=== PATIENT | male | born 1955 | race Caucasian/White ===

== ENCOUNTER 2018-05-02 10:29 | Inpatient (IN) ==
[2018-05-04 12:59] VITALS: BP 173/90
== END 2018-05-04 13:07 | disposition home or self-care (01) | DRG 309 ==
LOC: N.ED 10:29 → N.EDINP 14:49 → N.TELEN 17:02
PROVIDERS: ADMIT Emergency Medicine; ATTEND Emergency Medicine

== ENCOUNTER 2020-05-10 12:18 | Inpatient (IN) ==
[2020-05-10 12:53] LABS: Basophils % 0.6 % (0.0-0.8); Eosinophils # 0.1 10*3/uL (0.0-0.87); Immature Granulocytes % 0.4 %; Immature Granulocytes Absolute 0.03 #; Lymphocytes # 0.9 10*3/uL (1.4-4.0); Lymphocytes % 12.7 % (21.2-54.2); Mean Corpuscular HGB Conc 31.4 GM/DL (32-36); Mean Platelet Volume 10.8 FL (9.6-12.0); Monocytes % 9.6 % (1.7-12.7); NRBC # 0.02 10*3/uL; Neutrophils % 75.7 % (38.7-73.9); Platelet Count 177 T/CUMM (130-400); Red Blood Count 1.58 MC/CUMM (3.8-5.5); Red Cell Distribution Width 15.2 % (9.3-17.3); White Blood Count 7.2 T/CUMM (4-12)
[2020-05-10 12:58] LABS: Hemoglobin 5.3 GM/DL (14.0-18.0)
[2020-05-10 12:59] LABS: Hematocrit 16.9 VOL% (42.0-52.0)
[2020-05-10 13:08] LABS: Albumin 2.1 G/DL (3.4-5.0); Bilirubin,Total 1.1 MG/DL (0.2-1.0); Calcium 7.5 MG/DL (8.5-10.1); Osmolality,Calculated 257.8 MOS/KG (273-304); Total Protein 4.8 G/DL (6.4-8.3)
[2020-05-10 13:11] LABS: INR 1.5; PT Patient Result 15.8 SECS (9.8-11.9)
[2020-05-10] MEDS ORDERED: GLUCAGON 1 MG VIAL IM PRN (13:32)
[2020-05-10] MEDS ORDERED: DEXTROSE 50% 25 GM/50 ML VIAL IV PRN (13:32)
[2020-05-10] MEDS ORDERED: SODIUM CHLORIDE 0.9% 1,000 ML IV PRN (13:35)
[2020-05-10 14:00] LABS: Thyroid Stimulating Hormone 17.6 uIU/ml (0.358-3.74); VLDL CHOLESTEROL 23.2 MG/DL
[2020-05-10] MEDS ORDERED: MORPHINE 4 MG/1 ML VIAL IV PRN (14:40)
[2020-05-10] MEDS: PANTOPRAZOLE 40 MG VIAL IV SCH ×2 (16:17→21:45)
[2020-05-10 17:02] LABS: Hematocrit 18.3 VOL% (42.0-52.0)
[2020-05-10 17:08] LABS: Hemoglobin 5.6 GM/DL (14.0-18.0)
[2020-05-10] MEDS: SODIUM CHLORIDE 0.9% 1,000 ML IV SCH (18:53)
[2020-05-11] MEDS: SODIUM CHLORIDE 0.9% 1,000 ML IV SCH ×2 (01:17→09:38)
[2020-05-11] MEDS: PANTOPRAZOLE 40 MG VIAL IV SCH ×2 (08:30→21:33)
[2020-05-11 08:46] LABS: Basophils # 0.1 10*3/uL (0.0-0.2); Basophils % 0.8 % (0.0-0.8); Eosinophils % 0.7 % (0.00-10.9); Hematocrit 26.3 VOL% (42.0-52.0); Hemoglobin 8.6 GM/DL (14.0-18.0); Immature Granulocytes % 0.3 %; Immature Granulocytes Absolute 0.02 #; Lymphocytes # 0.8 10*3/uL (1.4-4.0); Lymphocytes % 13.1 % (21.2-54.2); Mean Corpuscular HGB Conc 32.7 GM/DL (32-36); Mean Platelet Volume 10.7 FL (9.6-12.0); Monocytes % 9.5 % (1.7-12.7); Neutrophils % 75.6 % (38.7-73.9); Platelet Count 160 T/CUMM (130-400); Red Blood Count 2.71 MC/CUMM (3.8-5.5); Red Cell Distribution Width 18.8 % (9.3-17.3)
[2020-05-11 09:16] LABS: Calcium 7.8 MG/DL (8.5-10.1); Osmolality,Calculated 262.4 MOS/KG (273-304)
[2020-05-11 10:00] LABS: Free T4 (Free Thyroxine) 1.2 NG/DL (0.76-1.46)
[2020-05-11] MEDS ORDERED: MAGNESIUM SULF RIDER 2 GM in PREMIX 1 EACH IV ONE (10:55)
[2020-05-11] MEDS ORDERED: LORazepam 2 MG/1 ML VIAL IV PRN (10:59)
[2020-05-11] MEDS: MULTIVITAMIN (CENTRUM) TABLET PO SCH (11:35)
[2020-05-11] MEDS: FOLIC ACID 1 MG TABLET PO SCH (11:35)
[2020-05-11] MEDS: THIAMINE 100 MG TABLET PO SCH (11:35)
[2020-05-11 13:39] LABS: Hematocrit 30.5 VOL% (42.0-52.0); Hemoglobin 10.1 GM/DL (14.0-18.0)
[2020-05-12 05:58] LABS: Basophils # 0.1 10*3/uL (0.0-0.2); Basophils % 0.9 % (0.0-0.8); Eosinophils # 0.1 10*3/uL (0.0-0.87); Eosinophils % 1.6 % (0.00-10.9); Hematocrit 30.1 VOL% (42.0-52.0); Hemoglobin 10.3 GM/DL (14.0-18.0); Immature Granulocytes % 0.4 %; Immature Granulocytes Absolute 0.03 #; Lymphocytes # 1.3 10*3/uL (1.4-4.0); Lymphocytes % 15.6 % (21.2-54.2); Mean Corpuscular HGB Conc 34.2 GM/DL (32-36); Mean Corpuscular Volume 94.1 FL (87-102); Mean Platelet Volume 10.5 FL (9.6-12.0); Monocytes % 8.7 % (1.7-12.7); Neutrophils % 72.8 % (38.7-73.9); Platelet Count 191 T/CUMM (130-400); Red Cell Distribution Width 18.6 % (9.3-17.3); White Blood Count 8.2 T/CUMM (4-12)
[2020-05-12 06:08] LABS: INR 1.3; PT Patient Result 13.7 SECS (9.8-11.9)
[2020-05-12 06:55] LABS: Albumin 2.2 G/DL (3.4-5.0); Bilirubin,Total 2.4 MG/DL (0.2-1.0); Calcium 7.7 MG/DL (8.5-10.1); Total Protein 5.2 G/DL (6.4-8.3)
[2020-05-12 06:56] LABS: Osmolality,Calculated 264.2 MOS/KG (273-304)
[2020-05-12] MEDS: THIAMINE 100 MG TABLET PO SCH (08:25)
[2020-05-12] MEDS: MULTIVITAMIN (CENTRUM) TABLET PO SCH (08:25)
[2020-05-12] MEDS: FOLIC ACID 1 MG TABLET PO SCH (08:25)
[2020-05-12] MEDS: PANTOPRAZOLE 40 MG VIAL IV SCH ×2 (08:25→21:16)
[2020-05-12] MEDS ORDERED: MAGNESIUM SULF RIDER 4 GM in PREMIX 1 EACH IV PRN (09:32)
[2020-05-12] MEDS: MAGNESIUM SULF RIDER 2 GM in PREMIX 1 EACH IV PRN (11:08)
[2020-05-12] MEDS ORDERED: ALBUMIN 25% 25 GM in PREMIX 1 EACH IV PRN (12:10)
[2020-05-12] MEDS: oxyCODONE/ACETAMINOPHEN 5-325 MG TABLET PO PRN ×2 (12:49→21:15)
[2020-05-12] MEDS: FUROSEMIDE 20 MG TABLET PO SCH (16:02)
[2020-05-12] MEDS: AMIODARONE 200 MG TABLET PO SCH (21:19)
[2020-05-13] MEDS: LEVOTHYROXINE 100 MCG TABLET PO SCH (05:52)
[2020-05-13 06:13] LABS: Basophils # 0.1 10*3/uL (0.0-0.2); Basophils % 0.7 % (0.0-0.8); Eosinophils # 0.1 10*3/uL (0.0-0.87); Eosinophils % 1.7 % (0.00-10.9); Hematocrit 27.5 VOL% (42.0-52.0); Hemoglobin 9.1 GM/DL (14.0-18.0); Immature Granulocytes % 0.4 %; Immature Granulocytes Absolute 0.03 #; Lymphocytes # 1.1 10*3/uL (1.4-4.0); Lymphocytes % 14.1 % (21.2-54.2); Mean Corpuscular HGB Conc 33.1 GM/DL (32-36); Mean Corpuscular Volume 97.2 FL (87-102); Mean Platelet Volume 10.5 FL (9.6-12.0); Monocytes % 9.2 % (1.7-12.7); Neutrophils % 73.9 % (38.7-73.9); Platelet Count 188 T/CUMM (130-400); Red Blood Count 2.83 MC/CUMM (3.8-5.5); White Blood Count 8.1 T/CUMM (4-12)
[2020-05-13 06:28] LABS: Calcium 7.7 MG/DL (8.5-10.1); Osmolality,Calculated 260.5 MOS/KG (273-304)
[2020-05-13] MEDS: LACTATED RINGERS 1,000 ML IV SCH (06:50)
[2020-05-13] MEDS ORDERED: POTASSIUM CHLORIDE RIDER 10 MEQ in PREMIX 1 EACH IV PRN (08:00)
[2020-05-13] MEDS ORDERED: propofoL 200 MG/20 ML VIAL IV ONE (09:00)
[2020-05-13] MEDS ORDERED: LIDOCAINE 2% 5 ML VIAL ONE (09:00)
[2020-05-13] MEDS: MAGNESIUM SULF RIDER 2 GM in PREMIX 1 EACH IV PRN (10:29)
[2020-05-13] MEDS: PANTOPRAZOLE 40 MG VIAL IV SCH ×2 (10:30→20:41)
[2020-05-13] MEDS: FUROSEMIDE 20 MG TABLET PO SCH ×2 (10:30→16:38)
[2020-05-13] MEDS: THIAMINE 100 MG TABLET PO SCH (10:30)
[2020-05-13] MEDS: FOLIC ACID 1 MG TABLET PO SCH (10:30)
[2020-05-13] MEDS: MULTIVITAMIN (CENTRUM) TABLET PO SCH (10:30)
[2020-05-13] MEDS: POTASSIUM CHLORIDE 20 MEQ TABLET PO PRN ×3 (10:31→16:38)
[2020-05-13] MEDS: AMIODARONE 200 MG TABLET PO SCH ×2 (10:31→20:41)
[2020-05-13] MEDS ORDERED: ONDANSETRON 4 MG/2 ML VIAL IV PRN (11:02)
[2020-05-13] MEDS ORDERED: BISACODYL 5 MG TABLET PO ONE (12:00)
[2020-05-13] MEDS ORDERED: TISSUE ADHESIVE 1 EACH APPLICATOR TOP ONE (12:43)
[2020-05-13] MEDS ORDERED: POLYETHYLENE GLYCOL POWDER 255 GM BOTTLE PO ONE (18:00)
[2020-05-13] MEDS ORDERED: MAGNESIUM CITRATE 300 ML BOTTLE PO ONE (21:00)
[2020-05-14 06:41] LABS: INR 1.3; PT Patient Result 13.7 SECS (9.8-11.9)
[2020-05-14] MEDS: LEVOTHYROXINE 100 MCG TABLET PO SCH (06:54)
[2020-05-14 07:07] LABS: Albumin 2.2 G/DL (3.4-5.0); Bilirubin,Total 1.3 MG/DL (0.2-1.0); Calcium 7.6 MG/DL (8.5-10.1); Osmolality,Calculated 261.5 MOS/KG (273-304); Total Protein 5.2 G/DL (6.4-8.3)
[2020-05-14] MEDS: LACTATED RINGERS 1,000 ML IV SCH ×2 (08:05→08:06)
[2020-05-14] MEDS: PANTOPRAZOLE 40 MG VIAL IV SCH ×2 (09:50→21:47)
[2020-05-14] MEDS: AMIODARONE 200 MG TABLET PO SCH ×2 (09:50→21:47)
[2020-05-14] MEDS: FOLIC ACID 1 MG TABLET PO SCH (09:50)
[2020-05-14] MEDS: POTASSIUM CHLORIDE 20 MEQ TABLET PO PRN ×4 (09:50→17:48)
[2020-05-14] MEDS: MULTIVITAMIN (CENTRUM) TABLET PO SCH (09:50)
[2020-05-14] MEDS: FUROSEMIDE 20 MG TABLET PO SCH (09:51)
[2020-05-14] MEDS: FUROSEMIDE 40 MG TABLET PO SCH (09:51)
[2020-05-14] MEDS: THIAMINE 100 MG TABLET PO SCH (09:51)
[2020-05-14] MEDS ORDERED: LIDOCAINE 2% 5 ML VIAL ONE (16:34)
[2020-05-14] MEDS ORDERED: propofoL 200 MG/20 ML VIAL IV ONE (16:34)
[2020-05-14] MEDS: carvediloL 12.5 MG TABLET PO SCH (21:47)
[2020-05-15 05:48] LABS: Basophils # 0.1 10*3/uL (0.0-0.2); Eosinophils # 0.2 10*3/uL (0.0-0.87); Eosinophils % 2.3 % (0.00-10.9); Hemoglobin 8.7 GM/DL (14.0-18.0); Immature Granulocytes % 0.3 %; Immature Granulocytes Absolute 0.02 #; Lymphocytes # 0.9 10*3/uL (1.4-4.0); Lymphocytes % 12.5 % (21.2-54.2); Mean Corpuscular HGB Conc 33.5 GM/DL (32-36); Mean Corpuscular Volume 95.9 FL (87-102); Mean Platelet Volume 10.6 FL (9.6-12.0); Monocytes % 9.7 % (1.7-12.7); Neutrophils % 74.2 % (38.7-73.9); Platelet Count 154 T/CUMM (130-400); Red Blood Count 2.71 MC/CUMM (3.8-5.5); Red Cell Distribution Width 17.6 % (9.3-17.3)
[2020-05-15 06:15] LABS: Calcium 7.7 MG/DL (8.5-10.1); Osmolality,Calculated 262.4 MOS/KG (273-304)
[2020-05-15] MEDS: LEVOTHYROXINE 100 MCG TABLET PO SCH (06:21)
[2020-05-15] MEDS: LACTATED RINGERS 1,000 ML IV SCH ×2 (06:24→09:22)
[2020-05-15] MEDS: PANTOPRAZOLE 40 MG VIAL IV SCH (09:19)
[2020-05-15] MEDS: THIAMINE 100 MG TABLET PO SCH (09:19)
[2020-05-15] MEDS: FOLIC ACID 1 MG TABLET PO SCH (09:19)
[2020-05-15] MEDS: MULTIVITAMIN (CENTRUM) TABLET PO SCH (09:20)
[2020-05-15] MEDS: FUROSEMIDE 40 MG TABLET PO SCH (09:20)
[2020-05-15] MEDS: AMIODARONE 200 MG TABLET PO SCH (09:20)
[2020-05-15] MEDS: carvediloL 12.5 MG TABLET PO SCH (09:20)
[2020-05-15 12:04] LABS: Hematocrit 25.8 VOL% (42.0-52.0); Hemoglobin 8.6 GM/DL (14.0-18.0)
[2020-05-15 15:53] VITALS: BP 112/68
== END 2020-05-15 16:35 | disposition home or self-care (01) | DRG 813 ==
LOC: N.ED 12:18 → N.EDINP 13:51 → N.TELEN 14:56
PROVIDERS: ADMIT Internal Medicine; ATTEND Internal Medicine

== ENCOUNTER 2020-06-01 20:32 | Inpatient (IN) ==
[2020-06-01] MEDS ORDERED: SODIUM CHLORIDE 0.9% 1,000 ML IV STA (21:21)
[2020-06-01 21:54] LABS: Basophils # 0.1 10*3/uL (0.0-0.2); Basophils % 0.7 % (0.0-0.8); Eosinophils # 0.2 10*3/uL (0.0-0.87); Eosinophils % 1.7 % (0.00-10.9); Hematocrit 24.1 VOL% (42.0-52.0); Hemoglobin 7.8 GM/DL (14.0-18.0); Immature Granulocytes % 0.5 %; Immature Granulocytes Absolute 0.05 #; Lymphocytes # 1.4 10*3/uL (1.4-4.0); Lymphocytes % 13.8 % (21.2-54.2); Mean Corpuscular HGB Conc 32.4 GM/DL (32-36); Mean Corpuscular Volume 97.6 FL (87-102); Mean Platelet Volume 10.5 FL (9.6-12.0); Monocytes % 8.1 % (1.7-12.7); Neutrophils % 75.2 % (38.7-73.9); Platelet Count 238 T/CUMM (130-400); Red Blood Count 2.47 MC/CUMM (3.8-5.5); Red Cell Distribution Width 15.9 % (9.3-17.3); White Blood Count 10.1 T/CUMM (4-12)
[2020-06-01 22:16] LABS: Albumin 1.9 G/DL (3.4-5.0); Bilirubin,Total 0.9 MG/DL (0.2-1.0); Osmolality,Calculated 269.2 MOS/KG (273-304); Total Protein 4.9 G/DL (6.4-8.3)
[2020-06-01] MEDS ORDERED: DEXTROSE 50% 25 GM/50 ML VIAL IV PRN (23:31)
[2020-06-01] MEDS ORDERED: ONDANSETRON 4 MG/2 ML VIAL IV PRN (23:31)
[2020-06-01] MEDS ORDERED: GLUCAGON 1 MG VIAL IM PRN (23:31)
[2020-06-02 01:47] LABS: Hemoglobin 7.7 GM/DL (14.0-18.0)
[2020-06-02 01:57] LABS: INR 1.3; Partial Thromboplastin Time 31.8 SECS (23.9-33.8)
[2020-06-02 02:07] LABS: Albumin 1.9 G/DL (3.4-5.0); Bilirubin,Total 0.9 MG/DL (0.2-1.0); Calcium 7.7 MG/DL (8.5-10.1); Osmolality,Calculated 267.4 MOS/KG (273-304); Total Protein 4.9 G/DL (6.4-8.3)
[2020-06-02] MEDS: POTASSIUM CHLORIDE INJ 10 MEQ, MAGNESIUM SULF INJ 2 GM in SODIUM CHLORIDE 0.45% 1,000 ML IV SCH ×2 (02:08→13:20)
[2020-06-02] MEDS: cefTRIAXone 1,000 MG in SODIUM CHLORIDE 0.9% 100 ML IV SCH (02:09)
[2020-06-02 06:03] LABS: Hematocrit 21.3 VOL% (42.0-52.0)
[2020-06-02] MEDS: LEVOTHYROXINE 100 MCG TABLET PO SCH (06:23)
[2020-06-02 06:35] LABS: Albumin 1.6 G/DL (3.4-5.0); Calcium 7.7 MG/DL (8.5-10.1); Osmolality,Calculated 269.2 MOS/KG (273-304); Total Protein 4.5 G/DL (6.4-8.3)
[2020-06-02 06:37] LABS: INR 1.3; PT Patient Result 13.5 SECS (9.8-11.9); Partial Thromboplastin Time 33.4 SECS (23.9-33.8)
[2020-06-02] MEDS ORDERED: SODIUM CHLORIDE 0.9% 1,000 ML IV PRN (06:46)
[2020-06-02 07:15] LABS: Hematocrit 23.7 VOL% (42.0-52.0); Hemoglobin 7.6 GM/DL (14.0-18.0)
[2020-06-02] MEDS: MAGNESIUM CHLORIDE 64 MG TABLET PO SCH (10:09)
[2020-06-02] MEDS: FERROUS SULFATE 325 MG TABLET PO SCH ×2 (10:10→21:08)
[2020-06-02] MEDS: FOLIC ACID 1 MG TABLET PO SCH (10:10)
[2020-06-02] MEDS: EZETIMIBE 10 MG TABLET PO SCH (10:10)
[2020-06-02] MEDS: PANTOPRAZOLE 40 MG TABLET PO SCH (10:10)
[2020-06-02] MEDS: AMIODARONE 200 MG TABLET PO SCH ×2 (10:10→21:09)
[2020-06-02] MEDS: THIAMINE 100 MG TABLET PO SCH (10:10)
[2020-06-02] MEDS: MULTIVITAMIN (CENTRUM) TABLET PO SCH (10:10)
[2020-06-02 11:03] LABS: Hematocrit 26.9 VOL% (42.0-52.0); Hemoglobin 8.3 GM/DL (14.0-18.0)
[2020-06-02 19:49] LABS: Hematocrit 27.4 VOL% (42.0-52.0); Hemoglobin 8.9 GM/DL (14.0-18.0)
[2020-06-03] MEDS: cefTRIAXone 1,000 MG in SODIUM CHLORIDE 0.9% 100 ML IV SCH (00:09)
[2020-06-03 05:40] LABS: Basophils # 0.1 10*3/uL (0.0-0.2); Basophils % 0.6 % (0.0-0.8); Eosinophils # 0.2 10*3/uL (0.0-0.87); Eosinophils % 1.8 % (0.00-10.9); Hematocrit 25.7 VOL% (42.0-52.0); Hemoglobin 8.4 GM/DL (14.0-18.0); Immature Granulocytes % 0.7 %; Immature Granulocytes Absolute 0.07 #; Lymphocytes # 1.2 10*3/uL (1.4-4.0); Lymphocytes % 11.7 % (21.2-54.2); Mean Corpuscular HGB Conc 32.7 GM/DL (32-36); Mean Corpuscular Volume 93.8 FL (87-102); Mean Platelet Volume 10.5 FL (9.6-12.0); Monocytes % 6.9 % (1.7-12.7); Neutrophils % 78.3 % (38.7-73.9); Platelet Count 236 T/CUMM (130-400); Red Blood Count 2.74 MC/CUMM (3.8-5.5); Red Cell Distribution Width 16.8 % (9.3-17.3); White Blood Count 10.4 T/CUMM (4-12)
[2020-06-03] MEDS: LEVOTHYROXINE 100 MCG TABLET PO SCH ×2 (06:06→06:10)
[2020-06-03 06:11] LABS: Bilirubin,Direct 0.51 MG/DL (0.0-0.20); Bilirubin,Indirect 0.7 MG/DL (0.0-1.0); Bilirubin,Total 1.2 MG/DL (0.2-1.0); Calcium 8.2 MG/DL (8.5-10.1); Osmolality,Calculated 269.1 MOS/KG (273-304); Total Protein 5.1 G/DL (6.4-8.3)
[2020-06-03 06:19] LABS: Free T4 (Free Thyroxine) 1.51 NG/DL (0.76-1.46)
[2020-06-03] MEDS ORDERED: ALBUMIN 25% 12.5 GM/50 ML VIAL IV ONE (10:38)
[2020-06-03] MEDS ORDERED: ALBUMIN 25% 12.5 GM in PREMIX 1 EACH IV ONE (10:44)
[2020-06-03] MEDS ORDERED: HYDROmorphone 2 MG/1 ML VIAL IV PRN (11:43)
[2020-06-03] MEDS: PANTOPRAZOLE 40 MG TABLET PO SCH (12:44)
[2020-06-03] MEDS: MULTIVITAMIN (CENTRUM) TABLET PO SCH (12:44)
[2020-06-03] MEDS: MAGNESIUM CHLORIDE 64 MG TABLET PO SCH (12:44)
[2020-06-03] MEDS: THIAMINE 100 MG TABLET PO SCH (12:44)
[2020-06-03] MEDS: SPIRONOLACTONE 50 MG TABLET PO SCH ×2 (12:44→21:15)
[2020-06-03] MEDS: AMIODARONE 200 MG TABLET PO SCH ×2 (12:44→21:15)
[2020-06-03] MEDS: FERROUS SULFATE 325 MG TABLET PO SCH ×2 (12:44→21:15)
[2020-06-03] MEDS: FOLIC ACID 1 MG TABLET PO SCH (12:45)
[2020-06-03] MEDS: EZETIMIBE 10 MG TABLET PO SCH (12:45)
[2020-06-03 13:01] LABS: Total Protein,Peritoneal Fluid 1.2 G/DL
[2020-06-03 13:17] LABS: Neutrophils,Peritoneal Fluid 6 %
[2020-06-03 13:18] LABS: RBC,Peritoneal Fluid 244 T/CUMM
[2020-06-03] MEDS: GABAPENTIN 100 MG CAPSULE PO SCH ×2 (17:37→21:15)
[2020-06-04] MEDS: cefTRIAXone 1,000 MG in SODIUM CHLORIDE 0.9% 100 ML IV SCH (00:55)
[2020-06-04] MEDS: LEVOTHYROXINE 100 MCG TABLET PO SCH (05:50)
[2020-06-04 06:25] LABS: Basophils # 0.1 10*3/uL (0.0-0.2); Basophils % 0.7 % (0.0-0.8); Eosinophils # 0.2 10*3/uL (0.0-0.87); Eosinophils % 2.1 % (0.00-10.9); Hematocrit 25.9 VOL% (42.0-52.0); Hemoglobin 8.3 GM/DL (14.0-18.0); Immature Granulocytes % 0.5 %; Immature Granulocytes Absolute 0.04 #; Lymphocytes # 1.4 10*3/uL (1.4-4.0); Lymphocytes % 15.8 % (21.2-54.2); Mean Platelet Volume 10.4 FL (9.6-12.0); Monocytes % 7.1 % (1.7-12.7); Neutrophils % 73.8 % (38.7-73.9); Platelet Count 216 T/CUMM (130-400); Red Blood Count 2.67 MC/CUMM (3.8-5.5); Red Cell Distribution Width 16.6 % (9.3-17.3); White Blood Count 8.9 T/CUMM (4-12)
[2020-06-04 06:49] LABS: Albumin 1.9 G/DL (3.4-5.0); Bilirubin,Direct 0.48 MG/DL (0.0-0.20); Bilirubin,Indirect 0.4 MG/DL (0.0-1.0); Bilirubin,Total 0.9 MG/DL (0.2-1.0); Calcium 8.2 MG/DL (8.5-10.1); Osmolality,Calculated 263.4 MOS/KG (273-304); Total Protein 4.9 G/DL (6.4-8.3)
[2020-06-04] MEDS ORDERED: HYDROmorphone 2 MG/1 ML VIAL IV PRN (06:57)
[2020-06-04] MEDS: SPIRONOLACTONE 50 MG TABLET PO SCH (09:25)
[2020-06-04] MEDS: EZETIMIBE 10 MG TABLET PO SCH (09:26)
[2020-06-04] MEDS: MULTIVITAMIN (CENTRUM) TABLET PO SCH (09:26)
[2020-06-04] MEDS: MAGNESIUM CHLORIDE 64 MG TABLET PO SCH (09:26)
[2020-06-04] MEDS: AMIODARONE 200 MG TABLET PO SCH (09:26)
[2020-06-04] MEDS: THIAMINE 100 MG TABLET PO SCH (09:26)
[2020-06-04] MEDS: GABAPENTIN 100 MG CAPSULE PO SCH ×2 (09:26→15:22)
[2020-06-04] MEDS: FOLIC ACID 1 MG TABLET PO SCH (09:27)
[2020-06-04] MEDS: PANTOPRAZOLE 40 MG TABLET PO SCH (09:27)
[2020-06-04] MEDS: FERROUS SULFATE 325 MG TABLET PO SCH (09:27)
[2020-06-04 15:34] VITALS: BP 119/84
== END 2020-06-04 16:15 | disposition home or self-care (01) | DRG 813 ==
LOC: N.ED 20:32 → N.EDINP 23:31 → SUATTDRO 23:31 → N.EDINP 06-02 00:55 → N.TELES 06-02 01:10
PROVIDERS: ADMIT Internal Medicine; ATTEND Family Medicine

== ENCOUNTER 2020-06-18 16:41 | Inpatient (IN) ==
[2020-06-18 17:22] LABS: Basophils % 0.2 % (0.0-0.8); Eosinophils # 0.1 10*3/uL (0.0-0.87); Eosinophils % 0.8 % (0.00-10.9); Hematocrit 30.2 VOL% (42.0-52.0); Immature Granulocytes % 0.5 %; Immature Granulocytes Absolute 0.08 #; Lymphocytes # 1.4 10*3/uL (1.4-4.0); Lymphocytes % 9.6 % (21.2-54.2); Mean Corpuscular HGB Conc 33.1 GM/DL (32-36); Mean Corpuscular Volume 93.5 FL (87-102); Mean Platelet Volume 10.4 FL (9.6-12.0); Monocytes % 5.2 % (1.7-12.7); Neutrophils % 83.7 % (38.7-73.9); Platelet Count 333 T/CUMM (130-400); Red Blood Count 3.23 MC/CUMM (3.8-5.5); White Blood Count 14.7 T/CUMM (4-12)
[2020-06-18 17:49] LABS: Albumin 2.5 G/DL (3.4-5.0); Bilirubin,Total 1.5 MG/DL (0.2-1.0); Calcium 8.6 MG/DL (8.5-10.1); Osmolality,Calculated 263.2 MOS/KG (273-304)
[2020-06-18 21:36] LABS: Apearance,Urine CLEAR (Clear); Bilirubin,Urine Negative (Negative); Blood, Urine Negative (Negative); Glucose,Urine (UA) Negative (Negative); Hyaline Casts,Urine 43 /LPF (0-3); Ketones,Urine Negative (Negative); Mucus,Urine Occasional /LPF (Occasional); Nitrite,Urine Negative (Negative); Protein,Urine Negative; RBC,Urine 2 /HPF (0-4); Squamous Epithelial Cell,Urine Occasional /HPF (0-10); Urine Color Yellow (Yellow); Urine Specific Gravity 1.014 (1.001-1.035); Urine Urobilinogen < 2.0 EU/DL (0.2-1.0); WBC,Urine 2 /HPF (0-6)
[2020-06-18] MEDS ORDERED: hydrALAZINE 20 MG/1 ML VIAL IV PRN (22:34)
[2020-06-18] MEDS ORDERED: DEXTROSE 50% 25 GM/50 ML VIAL IV PRN (22:34)
[2020-06-18] MEDS ORDERED: MORPHINE 4 MG/1 ML VIAL IV PRN (22:34)
[2020-06-18] MEDS ORDERED: GLUCAGON 1 MG VIAL IM PRN (22:34)
[2020-06-18] MEDS ORDERED: NICOTINE 21 MG/24 HR PATCH TRANSDERM PRN (22:34)
[2020-06-18] MEDS ORDERED: SODIUM CHLORIDE 0.9% 1,000 ML IV SCH (23:00)
[2020-06-18] MEDS: PANTOPRAZOLE 40 MG VIAL IV SCH (23:38)
[2020-06-19 04:55] LABS: Bilirubin,Total 1.1 MG/DL (0.2-1.0); Calcium 7.8 MG/DL (8.5-10.1); Osmolality,Calculated 266.9 MOS/KG (273-304); Total Protein 4.8 G/DL (6.4-8.3)
[2020-06-19] MEDS: PANTOPRAZOLE 40 MG VIAL IV SCH ×2 (09:22→20:48)
[2020-06-19] MEDS: SULFAMETHOX/TRIMETHOPRIM 800-160 MG TABLET PO SCH ×2 (11:48→20:48)
[2020-06-19] MEDS ORDERED: ALBUMIN 25% 12.5 GM in PREMIX 1 EACH IV ONE (14:45)
[2020-06-19] MEDS ORDERED: ALBUMIN 25% 12.5 GM/50 ML VIAL IV ONE (14:47)
[2020-06-19 17:45] LABS: RBC,Peritoneal Fluid 57 T/CUMM
[2020-06-19 17:48] LABS: Neutrophils,Peritoneal Fluid 13 %
[2020-06-20] MEDS ORDERED: SODIUM CHLORIDE 0.9% 500 ML IV ONE (04:05)
[2020-06-20 04:06] LABS: Basophils % 0.5 % (0.0-0.8); Eosinophils # 0.2 10*3/uL (0.0-0.87); Eosinophils % 2.1 % (0.00-10.9); Hemoglobin 7.8 GM/DL (14.0-18.0); Immature Granulocytes % 0.4 %; Immature Granulocytes Absolute 0.03 #; Lymphocytes # 0.8 10*3/uL (1.4-4.0); Lymphocytes % 10.2 % (21.2-54.2); Mean Corpuscular HGB Conc 33.9 GM/DL (32-36); Mean Corpuscular Volume 91.6 FL (87-102); Mean Platelet Volume 10.7 FL (9.6-12.0); Neutrophils % 81.8 % (38.7-73.9); Platelet Count 161 T/CUMM (130-400); Red Blood Count 2.51 MC/CUMM (3.8-5.5); White Blood Count 8.2 T/CUMM (4-12)
[2020-06-20 04:12] LABS: Albumin 1.9 G/DL (3.4-5.0); Bilirubin,Total 0.8 MG/DL (0.2-1.0); Calcium 7.8 MG/DL (8.5-10.1); Osmolality,Calculated 262.1 MOS/KG (273-304); Total Protein 4.7 G/DL (6.4-8.3)
[2020-06-20] MEDS: SULFAMETHOX/TRIMETHOPRIM 800-160 MG TABLET PO SCH ×2 (08:46→20:41)
[2020-06-20] MEDS: PANTOPRAZOLE 40 MG VIAL IV SCH ×2 (09:14→20:41)
[2020-06-20] MEDS ORDERED: SODIUM CHLORIDE 0.9% 1,000 ML IV PRN (11:31)
[2020-06-21 07:24] LABS: Hematocrit 32.5 VOL% (42.0-52.0)
[2020-06-21 07:25] LABS: Basophils # 0.1 10*3/uL (0.0-0.2); Basophils % 0.4 % (0.0-0.8); Eosinophils # 0.1 10*3/uL (0.0-0.87); Eosinophils % 0.9 % (0.00-10.9); Hematocrit 32.6 VOL% (42.0-52.0); Hemoglobin 11.3 GM/DL (14.0-18.0); Immature Granulocytes % 0.6 %; Immature Granulocytes Absolute 0.07 #; Lymphocytes # 0.9 10*3/uL (1.4-4.0); Lymphocytes % 7.4 % (21.2-54.2); Mean Corpuscular HGB Conc 34.4 GM/DL (32-36); Mean Corpuscular Volume 89.8 FL (87-102); Mean Platelet Volume 10.6 FL (9.6-12.0); Monocytes % 5.7 % (1.7-12.7); Platelet Count 167 T/CUMM (130-400); Red Blood Count 3.63 MC/CUMM (3.8-5.5); Red Cell Distribution Width 15.4 % (9.3-17.3); White Blood Count 11.7 T/CUMM (4-12)
[2020-06-21 07:26] LABS: Hemoglobin 11.2 GM/DL (14.0-18.0)
[2020-06-21 08:31] LABS: Albumin 2.1 G/DL (3.4-5.0); Bilirubin,Total 2.1 MG/DL (0.2-1.0); Osmolality,Calculated 257.4 MOS/KG (273-304); Total Protein 5.1 G/DL (6.4-8.3)
[2020-06-21] MEDS: PANTOPRAZOLE 40 MG VIAL IV SCH ×2 (08:57→20:32)
[2020-06-21] MEDS: SULFAMETHOX/TRIMETHOPRIM 800-160 MG TABLET PO SCH ×2 (08:57→20:34)
[2020-06-21] MEDS: SPIRONOLACTONE 50 MG TABLET PO SCH ×2 (12:03→20:34)
[2020-06-21] MEDS: FUROSEMIDE 40 MG TABLET PO SCH (12:03)
[2020-06-21] MEDS: ONDANSETRON 4 MG/2 ML VIAL IV PRN ×2 (14:33→20:32)
[2020-06-22 05:04] LABS: Basophils # 0.1 10*3/uL (0.0-0.2); Basophils % 0.4 % (0.0-0.8); Eosinophils # 0.1 10*3/uL (0.0-0.87); Eosinophils % 1.1 % (0.00-10.9); Hematocrit 31.9 VOL% (42.0-52.0); Hemoglobin 11.1 GM/DL (14.0-18.0); Immature Granulocytes % 0.7 %; Immature Granulocytes Absolute 0.08 #; Lymphocytes # 0.8 10*3/uL (1.4-4.0); Lymphocytes % 6.8 % (21.2-54.2); Mean Corpuscular HGB Conc 34.8 GM/DL (32-36); Mean Corpuscular Volume 88.4 FL (87-102); Mean Platelet Volume 10.8 FL (9.6-12.0); Monocytes % 6.1 % (1.7-12.7); Neutrophils % 84.9 % (38.7-73.9); Platelet Count 160 T/CUMM (130-400); Red Blood Count 3.61 MC/CUMM (3.8-5.5); Red Cell Distribution Width 15.4 % (9.3-17.3)
[2020-06-22 05:29] LABS: Albumin 1.9 G/DL (3.4-5.0); Bilirubin,Total 2.6 MG/DL (0.2-1.0); Osmolality,Calculated 261.1 MOS/KG (273-304)
[2020-06-22] MEDS: FUROSEMIDE 40 MG TABLET PO SCH (09:47)
[2020-06-22] MEDS: PANTOPRAZOLE 40 MG VIAL IV SCH ×2 (09:47→21:32)
[2020-06-22] MEDS: SPIRONOLACTONE 50 MG TABLET PO SCH ×2 (09:48→21:30)
[2020-06-22] MEDS: SULFAMETHOX/TRIMETHOPRIM 800-160 MG TABLET PO SCH ×2 (09:48→21:30)
[2020-06-22 12:39] LABS: INR 1.2; PT Patient Result 12.7 SECS (9.8-11.9)
[2020-06-22] MEDS: POLYETHYLENE GLYCOL POWDER 17 GM PACK PO SCH (16:38)
[2020-06-22] MEDS: DOCUSATE SODIUM 100 MG CAPSULE PO SCH (21:30)
[2020-06-22] MEDS: SENNA 8.6 MG TABLET PO SCH (21:31)
[2020-06-23 06:11] LABS: Basophils # 0.1 10*3/uL (0.0-0.2); Basophils % 0.4 % (0.0-0.8); Eosinophils # 0.1 10*3/uL (0.0-0.87); Eosinophils % 1.1 % (0.00-10.9); Hematocrit 33.2 VOL% (42.0-52.0); Hemoglobin 11.4 GM/DL (14.0-18.0); Immature Granulocytes % 0.9 %; Immature Granulocytes Absolute 0.11 #; Lymphocytes # 0.8 10*3/uL (1.4-4.0); Lymphocytes % 6.8 % (21.2-54.2); Mean Corpuscular HGB Conc 34.3 GM/DL (32-36); Mean Corpuscular Volume 89.5 FL (87-102); Mean Platelet Volume 10.6 FL (9.6-12.0); Monocytes % 5.7 % (1.7-12.7); Neutrophils % 85.1 % (38.7-73.9); Platelet Count 185 T/CUMM (130-400); Red Blood Count 3.71 MC/CUMM (3.8-5.5); Red Cell Distribution Width 15.5 % (9.3-17.3); White Blood Count 11.7 T/CUMM (4-12)
[2020-06-23 06:37] LABS: Albumin 1.9 G/DL (3.4-5.0); Calcium 8.3 MG/DL (8.5-10.1); Osmolality,Calculated 258.5 MOS/KG (273-304); Total Protein 5.2 G/DL (6.4-8.3)
[2020-06-23] MEDS: ACETAMINOPHEN 325 MG TABLET PO PRN (09:21)
[2020-06-23] MEDS: FUROSEMIDE 40 MG TABLET PO SCH (09:22)
[2020-06-23] MEDS: SULFAMETHOX/TRIMETHOPRIM 800-160 MG TABLET PO SCH ×2 (09:22→21:12)
[2020-06-23] MEDS: POLYETHYLENE GLYCOL POWDER 17 GM PACK PO SCH (09:22)
[2020-06-23] MEDS: DOCUSATE SODIUM 100 MG CAPSULE PO SCH ×2 (09:22→21:13)
[2020-06-23] MEDS: PANTOPRAZOLE 40 MG VIAL IV SCH ×2 (09:22→21:12)
[2020-06-23] MEDS: SPIRONOLACTONE 50 MG TABLET PO SCH ×2 (09:23→21:12)
[2020-06-23] MEDS: ONDANSETRON 4 MG/2 ML VIAL IV PRN (09:30)
[2020-06-23] MEDS ORDERED: ALBUMIN 25% 50 GM in PREMIX 1 EACH IV ONE (13:00)
[2020-06-23] MEDS ORDERED: AMINO ACIDS/DEXT/LYTES 4.25-5% 2,000 ML IV SCH (20:00)
[2020-06-23] MEDS: SENNA 8.6 MG TABLET PO SCH (21:12)
[2020-06-24 05:36] LABS: Basophils % 0.4 % (0.0-0.8); Eosinophils # 0.1 10*3/uL (0.0-0.87); Eosinophils % 1.3 % (0.00-10.9); Hematocrit 31.1 VOL% (42.0-52.0); Hemoglobin 10.6 GM/DL (14.0-18.0); Immature Granulocytes % 0.5 %; Immature Granulocytes Absolute 0.05 #; Lymphocytes # 0.8 10*3/uL (1.4-4.0); Lymphocytes % 7.9 % (21.2-54.2); Mean Corpuscular HGB Conc 34.1 GM/DL (32-36); Mean Corpuscular Volume 89.9 FL (87-102); Mean Platelet Volume 11.2 FL (9.6-12.0); Monocytes % 6.1 % (1.7-12.7); Neutrophils % 83.8 % (38.7-73.9); Platelet Count 157 T/CUMM (130-400); Red Blood Count 3.46 MC/CUMM (3.8-5.5); Red Cell Distribution Width 15.7 % (9.3-17.3); White Blood Count 10.1 T/CUMM (4-12)
[2020-06-24 06:03] LABS: Calcium 8.6 MG/DL (8.5-10.1); Osmolality,Calculated 257.6 MOS/KG (273-304)
[2020-06-24 06:12] LABS: Albumin 2.5 G/DL (3.4-5.0); Bilirubin,Total 1.7 MG/DL (0.2-1.0); Calcium 8.4 MG/DL (8.5-10.1); Osmolality,Calculated 259.5 MOS/KG (273-304); Total Protein 5.5 G/DL (6.4-8.3)
[2020-06-24] MEDS: SULFAMETHOX/TRIMETHOPRIM 800-160 MG TABLET PO SCH ×2 (10:26→21:07)
[2020-06-24] MEDS: SPIRONOLACTONE 50 MG TABLET PO SCH ×2 (10:26→21:07)
[2020-06-24] MEDS: POLYETHYLENE GLYCOL POWDER 17 GM PACK PO SCH (10:27)
[2020-06-24] MEDS: DOCUSATE SODIUM 100 MG CAPSULE PO SCH ×2 (10:27→21:07)
[2020-06-24] MEDS: FUROSEMIDE 40 MG TABLET PO SCH (10:27)
[2020-06-24] MEDS ORDERED: ALBUMIN 25% 50 GM in PREMIX 1 EACH IV ONE (11:19)
[2020-06-24] MEDS: PANTOPRAZOLE 40 MG VIAL IV SCH ×2 (14:07→21:07)
[2020-06-24] MEDS: AMINO ACIDS/DEXT/LYTES 4.25-5% 1,000 ML IV SCH (21:07)
[2020-06-24] MEDS: SENNA 8.6 MG TABLET PO SCH (21:07)
[2020-06-25 06:06] LABS: Basophils # 0.1 10*3/uL (0.0-0.2); Basophils % 0.8 % (0.0-0.8); Eosinophils # 0.2 10*3/uL (0.0-0.87); Eosinophils % 2.4 % (0.00-10.9); Hematocrit 29.2 VOL% (42.0-52.0); Immature Granulocytes % 0.8 %; Immature Granulocytes Absolute 0.07 #; Lymphocytes % 11.6 % (21.2-54.2); Mean Corpuscular HGB Conc 34.2 GM/DL (32-36); Mean Corpuscular Volume 90.4 FL (87-102); Mean Platelet Volume 10.8 FL (9.6-12.0); Monocytes % 7.4 % (1.7-12.7); Platelet Count 136 T/CUMM (130-400); Red Blood Count 3.23 MC/CUMM (3.8-5.5); Red Cell Distribution Width 15.8 % (9.3-17.3); White Blood Count 8.4 T/CUMM (4-12)
[2020-06-25 06:19] LABS: Calcium 8.4 MG/DL (8.5-10.1); Osmolality,Calculated 258.5 MOS/KG (273-304)
[2020-06-25 06:24] LABS: Albumin 2.8 G/DL (3.4-5.0); Bilirubin,Total 2.1 MG/DL (0.2-1.0); Calcium 8.4 MG/DL (8.5-10.1); Osmolality,Calculated 259.4 MOS/KG (273-304); Total Protein 5.4 G/DL (6.4-8.3)
[2020-06-25 06:25] LABS: Microcytosis Slight
[2020-06-25 06:26] LABS: Platelet Estimate Adequate; Target Cells Slight
[2020-06-25] MEDS: PANTOPRAZOLE 40 MG VIAL IV SCH ×2 (08:33→21:54)
[2020-06-25] MEDS: POLYETHYLENE GLYCOL POWDER 17 GM PACK PO SCH (08:53)
[2020-06-25] MEDS: SULFAMETHOX/TRIMETHOPRIM 800-160 MG TABLET PO SCH ×2 (08:53→21:54)
[2020-06-25] MEDS: DOCUSATE SODIUM 100 MG CAPSULE PO SCH ×2 (08:54→21:54)
[2020-06-25] MEDS: SPIRONOLACTONE 50 MG TABLET PO SCH ×2 (08:54→21:53)
[2020-06-25] MEDS: FUROSEMIDE 40 MG TABLET PO SCH ×2 (08:54→16:10)
[2020-06-25] MEDS ORDERED: ALBUMIN 25% 50 GM in PREMIX 1 EACH IV ONE (10:02)
[2020-06-25] MEDS: AMINO ACIDS/DEXT/LYTES 4.25-5% 1,000 ML IV SCH ×2 (10:18→12:47)
[2020-06-25] MEDS: SENNA 8.6 MG TABLET PO SCH (21:54)
[2020-06-26 05:35] LABS: Calcium 8.8 MG/DL (8.5-10.1); Osmolality,Calculated 258.4 MOS/KG (273-304)
[2020-06-26] MEDS: DOCUSATE SODIUM 100 MG CAPSULE PO SCH ×2 (09:28→20:39)
[2020-06-26] MEDS: SULFAMETHOX/TRIMETHOPRIM 800-160 MG TABLET PO SCH ×2 (09:28→20:39)
[2020-06-26] MEDS: SPIRONOLACTONE 50 MG TABLET PO SCH ×2 (09:28→20:39)
[2020-06-26] MEDS: PANTOPRAZOLE 40 MG VIAL IV SCH ×2 (09:28→20:39)
[2020-06-26] MEDS: FUROSEMIDE 40 MG TABLET PO SCH ×2 (09:28→16:57)
[2020-06-26] MEDS: POLYETHYLENE GLYCOL POWDER 17 GM PACK PO SCH (09:28)
[2020-06-26] MEDS ORDERED: SALMETEROL 50 MCG/PUFF DISKUS 28 DOSE INH SCH (12:30)
[2020-06-26] MEDS: AMINO ACIDS/DEXT/LYTES 4.25-5% 1,000 ML IV SCH (16:57)
[2020-06-26] MEDS: SENNA 8.6 MG TABLET PO SCH (20:39)
[2020-06-27 06:05] LABS: Calcium 8.6 MG/DL (8.5-10.1); Osmolality,Calculated 259.4 MOS/KG (273-304)
[2020-06-27 08:45] LABS: Bilirubin,Direct 1.11 MG/DL (0.0-0.20); Bilirubin,Indirect 0.7 MG/DL (0.0-1.0); Bilirubin,Total 1.8 MG/DL (0.2-1.0); Total Protein 5.2 G/DL (6.4-8.3)
[2020-06-27 09:39] LABS: Calcium 8.3 MG/DL (8.5-10.1); Osmolality,Calculated 260.4 MOS/KG (273-304)
[2020-06-27] MEDS: SPIRONOLACTONE 50 MG TABLET PO SCH ×2 (09:41→21:25)
[2020-06-27] MEDS: FUROSEMIDE 40 MG TABLET PO SCH (09:41)
[2020-06-27] MEDS: PANTOPRAZOLE 40 MG VIAL IV SCH ×2 (09:42→21:25)
[2020-06-27] MEDS: DOCUSATE SODIUM 100 MG CAPSULE PO SCH ×2 (09:42→21:25)
[2020-06-27] MEDS: POLYETHYLENE GLYCOL POWDER 17 GM PACK PO SCH (09:42)
[2020-06-27 11:24] LABS: Basophils # 0.1 10*3/uL (0.0-0.2); Basophils % 0.7 % (0.0-0.8); Eosinophils # 0.2 10*3/uL (0.0-0.87); Eosinophils % 2.4 % (0.00-10.9); Hematocrit 27.8 VOL% (42.0-52.0); Hemoglobin 9.4 GM/DL (14.0-18.0); Immature Granulocytes % 0.5 %; Immature Granulocytes Absolute 0.04 #; Lymphocytes # 0.7 10*3/uL (1.4-4.0); Lymphocytes % 8.5 % (21.2-54.2); Mean Corpuscular HGB Conc 33.8 GM/DL (32-36); Mean Corpuscular Volume 90.8 FL (87-102); Mean Platelet Volume 11.2 FL (9.6-12.0); Monocytes % 7.1 % (1.7-12.7); Neutrophils % 80.8 % (38.7-73.9); Platelet Count 128 T/CUMM (130-400); Red Blood Count 3.06 MC/CUMM (3.8-5.5); Red Cell Distribution Width 15.7 % (9.3-17.3); White Blood Count 8.6 T/CUMM (4-12)
[2020-06-27] MEDS ORDERED: ALBUMIN 25% 12.5 GM/50 ML VIAL IV ONE (14:00)
[2020-06-27] MEDS ORDERED: ALBUMIN 25% 12.5 GM in PREMIX 1 EACH IV ONE (14:00)
[2020-06-27] MEDS ORDERED: FUROSEMIDE 40 MG TABLET PO SCH (16:00)
[2020-06-27] MEDS: AMINO ACIDS/DEXT/LYTES 4.25-5% 1,000 ML IV SCH (16:37)
[2020-06-27] MEDS: SENNA 8.6 MG TABLET PO SCH (21:25)
[2020-06-27] MEDS: ACETAMINOPHEN 325 MG TABLET PO PRN (21:28)
[2020-06-28 05:53] LABS: Basophils # 0.1 10*3/uL (0.0-0.2); Basophils % 1.2 % (0.0-0.8); Eosinophils # 0.2 10*3/uL (0.0-0.87); Eosinophils % 2.6 % (0.00-10.9); Hematocrit 28.2 VOL% (42.0-52.0); Hemoglobin 9.7 GM/DL (14.0-18.0); Immature Granulocytes % 0.4 %; Immature Granulocytes Absolute 0.03 #; Lymphocytes # 0.7 10*3/uL (1.4-4.0); Lymphocytes % 8.8 % (21.2-54.2); Mean Corpuscular HGB Conc 34.4 GM/DL (32-36); Mean Corpuscular Volume 89.5 FL (87-102); Mean Platelet Volume 10.8 FL (9.6-12.0); Monocytes % 8.4 % (1.7-12.7); Neutrophils % 78.6 % (38.7-73.9); Platelet Count 132 T/CUMM (130-400); Red Blood Count 3.15 MC/CUMM (3.8-5.5); Red Cell Distribution Width 15.7 % (9.3-17.3); White Blood Count 7.8 T/CUMM (4-12)
[2020-06-28 06:11] LABS: Hypochromasia 1+; Platelet Estimate Normal
[2020-06-28 06:21] LABS: Calcium 8.2 MG/DL (8.5-10.1); Osmolality,Calculated 259.5 MOS/KG (273-304)
[2020-06-28] MEDS ORDERED: SPIRONOLACTONE 100 MG TABLET PO SCH (09:00)
[2020-06-28] MEDS ORDERED: FUROSEMIDE 20 MG TABLET PO SCH (09:00)
[2020-06-28] MEDS: SPIRONOLACTONE 50 MG TABLET PO SCH (09:23)
[2020-06-28] MEDS: POLYETHYLENE GLYCOL POWDER 17 GM PACK PO SCH (09:24)
[2020-06-28] MEDS: DOCUSATE SODIUM 100 MG CAPSULE PO SCH ×2 (09:24→20:51)
[2020-06-28] MEDS ORDERED: MAGNESIUM SULF RIDER 2 GM in PREMIX 1 EACH IV PRN (10:26)
[2020-06-28] MEDS: PANTOPRAZOLE 40 MG VIAL IV SCH ×2 (12:03→20:51)
[2020-06-28] MEDS: AMINO ACIDS/DEXT/LYTES 4.25-5% 1,000 ML IV SCH (16:45)
[2020-06-28] MEDS: SENNA 8.6 MG TABLET PO SCH (20:51)
[2020-06-28] MEDS: SPIRONOLACTONE 100 MG TABLET PO SCH (20:51)
[2020-06-29 06:01] LABS: Basophils # 0.1 10*3/uL (0.0-0.2); Basophils % 0.8 % (0.0-0.8); Eosinophils # 0.2 10*3/uL (0.0-0.87); Eosinophils % 2.3 % (0.00-10.9); Hematocrit 28.6 VOL% (42.0-52.0); Immature Granulocytes % 0.5 %; Immature Granulocytes Absolute 0.05 #; Lymphocytes # 0.9 10*3/uL (1.4-4.0); Lymphocytes % 9.1 % (21.2-54.2); Mean Corpuscular Volume 88.5 FL (87-102); Mean Platelet Volume 11.1 FL (9.6-12.0); Monocytes % 8.1 % (1.7-12.7); Neutrophils % 79.2 % (38.7-73.9); Platelet Count 154 T/CUMM (130-400); Red Blood Count 3.23 MC/CUMM (3.8-5.5); Red Cell Distribution Width 15.4 % (9.3-17.3); White Blood Count 9.3 T/CUMM (4-12)
[2020-06-29 06:19] LABS: Calcium 8.6 MG/DL (8.5-10.1); Osmolality,Calculated 257.6 MOS/KG (273-304)
[2020-06-29] MEDS: PANTOPRAZOLE 40 MG VIAL IV SCH ×2 (09:25→20:39)
[2020-06-29] MEDS: FUROSEMIDE 40 MG TABLET PO SCH (09:56)
[2020-06-29] MEDS: POLYETHYLENE GLYCOL POWDER 17 GM PACK PO SCH (09:57)
[2020-06-29] MEDS: SPIRONOLACTONE 100 MG TABLET PO SCH ×2 (09:57→20:40)
[2020-06-29] MEDS: DOCUSATE SODIUM 100 MG CAPSULE PO SCH ×2 (09:57→20:39)
[2020-06-29] MEDS: ONDANSETRON 4 MG/2 ML VIAL IV PRN (15:55)
[2020-06-29] MEDS: AMINO ACIDS/DEXT/LYTES 4.25-5% 1,000 ML IV SCH (17:15)
[2020-06-29] MEDS: SENNA 8.6 MG TABLET PO SCH (20:39)
[2020-06-30] MEDS: PANTOPRAZOLE 40 MG VIAL IV SCH ×2 (08:55→20:30)
[2020-06-30] MEDS: FUROSEMIDE 40 MG TABLET PO SCH (09:40)
[2020-06-30] MEDS: DOCUSATE SODIUM 100 MG CAPSULE PO SCH ×2 (09:40→20:31)
[2020-06-30] MEDS: POLYETHYLENE GLYCOL POWDER 17 GM PACK PO SCH (09:40)
[2020-06-30] MEDS: SPIRONOLACTONE 100 MG TABLET PO SCH ×2 (09:40→20:31)
[2020-06-30] MEDS: AMINO ACIDS/DEXT/LYTES 4.25-5% 1,000 ML IV SCH (16:51)
[2020-06-30] MEDS: ACETAMINOPHEN 325 MG TABLET PO PRN (19:47)
[2020-06-30] MEDS: SENNA 8.6 MG TABLET PO SCH (20:31)
[2020-07-01] MEDS: ACETAMINOPHEN 325 MG TABLET PO PRN ×2 (07:20→16:00)
[2020-07-01] MEDS: FUROSEMIDE 40 MG TABLET PO SCH (08:31)
[2020-07-01] MEDS: DOCUSATE SODIUM 100 MG CAPSULE PO SCH ×2 (08:31→21:49)
[2020-07-01] MEDS: SPIRONOLACTONE 100 MG TABLET PO SCH ×2 (08:31→21:48)
[2020-07-01] MEDS: POLYETHYLENE GLYCOL POWDER 17 GM PACK PO SCH (08:32)
[2020-07-01] MEDS: PANTOPRAZOLE 40 MG VIAL IV SCH ×2 (09:25→21:49)
[2020-07-01] MEDS: CYPROHEPTADINE 4 MG TABLET PO SCH ×2 (13:07→21:48)
[2020-07-01] MEDS: AMINO ACIDS/DEXT/LYTES 4.25-5% 1,000 ML IV SCH (17:29)
[2020-07-01] MEDS: SENNA 8.6 MG TABLET PO SCH (21:48)
[2020-07-02 06:25] LABS: Free T4 (Free Thyroxine) 1.08 NG/DL (0.76-1.46); Thyroid Stimulating Hormone 10.7 uIU/ml (0.358-3.74)
[2020-07-02 08:49] LABS: Albumin 2.5 G/DL (3.4-5.0); Bilirubin,Direct 0.7 MG/DL (0.0-0.20); Bilirubin,Total 1.7 MG/DL (0.2-1.0); Calcium 8.5 MG/DL (8.5-10.1); Osmolality,Calculated 258.6 MOS/KG (273-304); Total Protein 5.5 G/DL (6.4-8.3)
[2020-07-02] MEDS: PANTOPRAZOLE 40 MG VIAL IV SCH ×2 (09:24→22:28)
[2020-07-02] MEDS: POLYETHYLENE GLYCOL POWDER 17 GM PACK PO SCH (09:27)
[2020-07-02] MEDS: DOCUSATE SODIUM 100 MG CAPSULE PO SCH ×2 (09:28→22:33)
[2020-07-02] MEDS: SPIRONOLACTONE 100 MG TABLET PO SCH ×2 (09:28→22:33)
[2020-07-02] MEDS: FUROSEMIDE 40 MG TABLET PO SCH (09:28)
[2020-07-02] MEDS: CYPROHEPTADINE 4 MG TABLET PO SCH ×2 (09:28→22:33)
[2020-07-02] MEDS: ONDANSETRON 4 MG/2 ML VIAL IV PRN ×2 (10:36→16:28)
[2020-07-02] MEDS: AMINO ACIDS/DEXT/LYTES 4.25-5% 1,000 ML IV SCH (16:51)
[2020-07-02] MEDS ORDERED: MIRTAZAPINE 15 MG TABLET PO SCH (21:00)
[2020-07-02] MEDS: SENNA 8.6 MG TABLET PO SCH (22:33)
[2020-07-03] MEDS: LEVOTHYROXINE 50 MCG TABLET PO SCH (06:24)
[2020-07-03] MEDS: SPIRONOLACTONE 100 MG TABLET PO SCH ×2 (08:41→20:58)
[2020-07-03] MEDS: FUROSEMIDE 40 MG TABLET PO SCH (08:41)
[2020-07-03] MEDS: DOCUSATE SODIUM 100 MG CAPSULE PO SCH ×2 (08:42→20:58)
[2020-07-03] MEDS: CYPROHEPTADINE 4 MG TABLET PO SCH ×2 (08:42→20:58)
[2020-07-03] MEDS: POLYETHYLENE GLYCOL POWDER 17 GM PACK PO SCH (09:07)
[2020-07-03] MEDS: PANTOPRAZOLE 40 MG VIAL IV SCH ×2 (09:28→20:57)
[2020-07-03] MEDS: SENNA 8.6 MG TABLET PO SCH (20:57)
[2020-07-04] MEDS: ACETAMINOPHEN 325 MG TABLET PO PRN (06:20)
[2020-07-04] MEDS: LEVOTHYROXINE 50 MCG TABLET PO SCH (06:20)
[2020-07-04] MEDS: DOCUSATE SODIUM 100 MG CAPSULE PO SCH (10:31)
[2020-07-04] MEDS: SPIRONOLACTONE 100 MG TABLET PO SCH (10:31)
[2020-07-04] MEDS: CYPROHEPTADINE 4 MG TABLET PO SCH (10:32)
[2020-07-04] MEDS: PANTOPRAZOLE 40 MG VIAL IV SCH (10:32)
[2020-07-04] MEDS: FUROSEMIDE 40 MG TABLET PO SCH (10:32)
[2020-07-04] MEDS: POLYETHYLENE GLYCOL POWDER 17 GM PACK PO SCH (10:36)
[2020-07-04 10:44] LABS: Basophils # 0.1 10*3/uL (0.0-0.2); Basophils % 1.1 % (0.0-0.8); Eosinophils # 0.3 10*3/uL (0.0-0.87); Eosinophils % 2.6 % (0.00-10.9); Hemoglobin 9.7 GM/DL (14.0-18.0); Immature Granulocytes % 0.5 %; Immature Granulocytes Absolute 0.05 #; Lymphocytes # 0.9 10*3/uL (1.4-4.0); Lymphocytes % 8.6 % (21.2-54.2); Mean Corpuscular HGB Conc 34.6 GM/DL (32-36); Mean Corpuscular Volume 89.2 FL (87-102); Mean Platelet Volume 10.4 FL (9.6-12.0); Monocytes % 9.8 % (1.7-12.7); Neutrophils % 77.4 % (38.7-73.9); Platelet Count 200 T/CUMM (130-400); Red Blood Count 3.14 MC/CUMM (3.8-5.5); Red Cell Distribution Width 16.2 % (9.3-17.3); White Blood Count 10.9 T/CUMM (4-12)
[2020-07-04 11:11] LABS: Albumin 2.5 G/DL (3.4-5.0); Bilirubin,Total 1.9 MG/DL (0.2-1.0); Calcium 8.7 MG/DL (8.5-10.1); Osmolality,Calculated 259.6 MOS/KG (273-304); Total Protein 5.7 G/DL (6.4-8.3)
[2020-07-04 11:35] VITALS: BP 118/76
== END 2020-07-04 15:03 | disposition swing bed (61) | DRG 433 ==
LOC: N.ED 16:41 → N.EDINP 22:57 → SUATTDRO 22:57 → N.EDINP 06-19 14:26 → N.TELES 06-19 15:22
PROVIDERS: ADMIT Hospitalist; ATTEND Hospitalist